=== PATIENT | male | born 1955 | race Caucasian/White ===

== ENCOUNTER → 2018-01-31 | Outpatient (CLI) | payer OTHER ==
[~2018-01-31] VITALS: Ht 172.7 cm; Wt 95.3 kg
[~2018-01-31] MED LIST: ASPIR 8181 MG PO; CELEBREX 200 M200 M1 PO; FOLIC ACID1 MG PO; HUMIRA20 MG/0.4 SQ; LIPITOR80 MG PO; LORTAB 7.5/5001 TA1 PO; METFORMIN HCL500 MG PO; METHOTREXATE 22.5 MG PO; NORVASC5 MG PO; PERCOCET 7.5-31 EACH PO; PRINZIDE 20-251 EACH PO; TEMAZEPAM30 MG PO; VIAGRA100 MG PO; VITAMIN D1000 UNI1 PO
--- NOTE | ~2018-01-31 | HPC ---
[facility] [address] [place] [address] PAIN MANAGEMENT CONSULTATION Name: ISABEL MAJOR [facility] [id number] Admission: 01/31/18 Attend Phys: Eliazar Florentino DO Discharge: Date of : 51 Report #: [id number] THIS REPORT FOR: //name// CC: Mihir Umana MD DATE OF SERVICE: 01/31/2018 REFERRING PHYSICIAN: Dr. William Umana. CHIEF COMPLAINT: Low back pain, left lower extremity pain with paresthesias. HISTORY OF PRESENT ILLNESS: As you know, the patient is a very pleasant 63-year-old male who began experiencing instantaneous back pain, left lower extremity pain with paresthesias that occurred 01/03/2018. The patient states that he was going about his daily work out utilizing a stationary row machine when he felt back pain began and then radiation down the left leg that he described as a hot poker-like sensation. The patient believes he may have "pulled something." He did not improve with conservative treatment at home including poon-[id number] medications, rest and relaxation. He sought evaluation through his primary care physician, Dr. William Umana, who ultimately sent the patient for imaging of the lumbar spine. Imaging showed a large circumferential disk protrusion at the L3-L4 level with significant central canal stenosis and marked displacement of the thecal sac at the L3-L4 level and displacement of the L4 nerve root due to this displaced disk. The patient was initially started on some Lyrica in hopes of improving pain. He is now at 150 mg twice a day with improvement in symptoms, but continued pain radiating down the left leg. He was subsequently referred to our clinic to trial epidural injections under fluoroscopic guidance. He does have an appointment with Neurosurgery, 02/19/2018 to discuss the possibility of surgical options. He has been referred to our service to discuss treatment options. The patient today reports pain is continuous and constant. Describes the pain as burning, aching, relentless, stabbing, numbness and tingling. Places the current pain score 3-4/10, daily average of 6/10, worst pain has been a 9/10. The patient says standing, walking, sitting, lying down, tends to exacerbate symptoms. Not much in the way of improvement has been noted except for the Lyrica 150 mg twice a day dose. He has continued his home physical therapy program for which he was given handouts to be performing at home. He has an inversion table he has been using consistently, but has not noted significant benefit. He has been referred to discuss treatment options and to potentially undergo epidural injection. PAST MEDICAL HISTORY: 1. Diabetes mellitus type 2. [address] [address] PAIN MANAGEMENT CONSULTATION Name: ISABEL MAJOR Room #: REG CROY Medrano#: [id number] Admission: 01/31/18 Attend Phys: Eliazar Florentino DO Discharge: Date of : 51 Report #: [id number] 2. Hypertension. 3. Rheumatoid arthritis. 4. Erectile dysfunction. 5. Dyslipidemia. PAST SURGICAL HISTORY: 1. Bilateral rotator cuff repair in 2006 and 2007. 2. Cervical decompression, 08/2016. SOCIAL HISTORY: The patient denies tobacco, IV or illicit drug use. Admits to approximately 2-3 alcohol beverages per week. 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 He has been retired for about 15 years, not receiving workmen's compensation or is he trying to obtain disability benefits. He is not in litigation in regards to pain. He is unaccompanied today. REVIEW OF SYSTEMS: Positive for fatigue and weakness, wearing corrective eyewear, hearing loss with tinnitus, changes in bowel movement secondary to opioid management, frequent urination, nocturia, sexual difficulty requiring medication management, numbness and tingling sensations involving the low back and left lower extremity, diabetes mellitus type 2, excessive thirst and urination. All other review of systems negative per 12-point review of systems other than those listed in history of present illness. Pain impact score 52/70 indicating severe interference of daily activities secondary to pain. ALLERGIES: No known drug allergies. CURRENT MEDICATIONS: Viagra 100 mg p.r.n., temazepam 30 mg p.o. at bedtime, celecoxib 200 mg once a day, aspirin 81 mg per day, amlodipine 5 mg twice a day, hydrocodone/acetaminophen 7.5/325 one tab p.o. q. 8 hours p.r.n. for pain, cholecalciferol 1000 units per day, folic acid 1 mg once a day, lisinopril/hydrochlorothiazide 20/25 once a day, metformin 500 mg twice a day, atorvastatin 80 mg once a day, methotrexate 2.5 mg 5 tabs per day, Humira 20 mg/0.4 mL kit subQ as directed. IMAGING: MRI of lumbar spine obtained 01/23/2018 shows a large circumferential disk bulge and facet hypertrophy at the L3-L4 level. Distortion of the thecal sac is noted due to asymmetry of the bulging annulus. There appears to be an extruded fragment, measures approximately 1.7 cm craniocaudal, 1.6 cm transversely, and 7 mm AP with marked displacement of the thecal sac at the L4 vertebral body, thecal sac measuring 0.6 cm. There are changes at the L4-L5 level with large bulging disk, marked facet hypertrophy and arthropathy, neural foraminal stenosis, effacement of the lateral right and left thecal sac with measurement of the sac measuring 0.9 cm. [facility] [address] [place] [address] PAIN MANAGEMENT CONSULTATION Name: PEDRITOISABEL LEZAMA Room #: REG [facility].#: [id number] Admission: 01/31/18 Attend Phys: Eliazar Florentino DO Discharge: Date of : 51 Report #: [id number] PHYSICAL EXAMINATION: VITAL SIGNS: Blood pressure 135/70, pulse is 65, respiratory rate 16 and unlabored. The patient is 98% on room air. Height 5 feet 8 inches tall, weight 210 pounds, BMI calculated 31.9. GENERAL: Well-developed, well-nourished, well-hydrated, 63-year-old male, appearing stated age, placing current pain score 3-4/10. HEENT: Normocephalic, atraumatic. Pupils equal, round, reactive to light. Extraocular muscles are intact. Sclerae nonicteric without injection. NEUROLOGIC: Cranial nerves 2-12 grossly intact. Speech is fluent. The patient deemed an excellent historian. LUNGS: Clear. No wheeze, rhonchi or rales. CARDIOVASCULAR: Regular. No appreciable gallop. No rub. ABDOMEN: Soft, nontender. EXTREMITIES: Show no clubbing, no cyanosis, no edema. MUSCULOSKELETAL: The patient has some palpatory tenderness over the paraspinal musculature of lower lumbar spine. No spinous process tenderness. Muscle bulk and tone equal and symmetrical in lower extremity. He remains intact to light touch from L1 through S2 dermatomes. Seated straight leg raising positive on the left. Supine straight leg raising positive on the left. VICKEY test negative. Modified Gaenslen's positive for axial low back pain. Gait mildly antalgic favoring left lower extremity over right. Stance is forward flexed lumbar spine, loss of lordotic curvature. Ankle clonus negative. Babinski is negative. ASSESSMENT: 1. Symptomatic lumbar radiculopathy. 2. Spinal stenosis of lumbar spine. 3. Displacement of lumbar intervertebral disk with radiculopathy. 4. Lumbosacral spondylosis with radiculopathy. 5. Neural foraminal stenosis of lumbar spine. 6. Facet arthropathy of the lumbar spine. 7. Lumbar degeneration. 8. Chronic intractable pain. PLAN: 1. The patient has been referred to our service by his primary care physician, Dr. William Umana for evaluation for lumbar radiculopathy secondary to the findings at the L3-L4 level. The patient has significant change at the L3-L4 level for which he is also seeking surgical consultation. We discussed with the patient the treatment options available for the findings of the MRI and his current symptom distribution. We discussed the following with the patient today and treatment option. We discussed physical therapy, stretching exercise, core strengthening for which the patient is currently doing home physical therapy program, but we did discuss the possibility of beginning a more formalized program, [place] [address] PAIN MANAGEMENT CONSULTATION Name: ISABEL MAJOR Room #: REG CORY Medrano#: [id number] Admission: 01/31/18 Attend Phys: Eliazar Florentino DO Discharge: Date of : 53 Report #: [id number] direction of a physician in regards to this activity. He is also continuing to use his inversion table per his physician's direction. We discussed medication management escalating the Lyrica dose as he is noticing benefit to 150 mg twice a day and there is a possibility of increasing. May see improvement in symptoms. We discussed the requested lumbar epidural injection, spinal cord stimulator therapy and surgical options. After reviewing risks and benefits of all proposed treatment options, the patient chose to begin with an epidural injection. The patient was advised third constitution party payer restrictions require that authorization be obtained before he could undergo lumbar epidural injection. Authorization could take anywhere from 4-7 working days. We will begin this process immediately and contact the patient once the authorization has been received. 2. The patient and I did discuss the possibility of increasing his Lyrica. Currently, he is taking 150 mg twice a day. Would recommend increasing it to 200 mg twice a day. If there is no improvement in symptoms and no side effects, escalate to 250 mg twice a day. We have given the patient samples of 50 mg tablets to be able to titrate as directed. He will continue his medication until our next visit. If at that time, we need to make further adjustments or a full prescription available to the patient, we will do so. 3. The patient does have an appointment with Neurosurgery, 02/19/[address] Acuna. We recommend that the patient keep this appointment with Dr. Acuna to discuss surgical options. 4. We will see the patient back in followup visit once we have achieved authorization for the patient to undergo epidural injection. We will keep him apprised of our process and contact him once the authorization has been obtained to schedule him back to do the epidural injection. 5. We wish to thank Dr. Umana for the referral of patient to our clinic. We will keep you apprised of his response to treatment as we address his lumbar radiculopathy. Again, we wish to thank you for the opportunity to see the patient in consultation. By: [id number] Eliazar Florentino DO /nitin
[2018-01-31 08:39] VITALS: BP 135/70
== END ==
LOC: PAIN 07:00
DX: M48.061 Spinal stenosis, lumbar region without neurogenic claudication (principal); M47.27 Other spondylosis with radiculopathy, lumbosacral region; G89.4 Chronic pain syndrome; M12.88 Other specific arthropathies, not elsewhere classified, other specified site

== ENCOUNTER → 2018-02-13 | Outpatient (CLI) | payer OTHER ==
[~2018-02-13] VITALS: Ht 172.7 cm; Wt 97.5 kg
--- NOTE | ~2018-02-13 | HPC ---
[facility] [address] [place] [address] PAIN MANAGEMENT CONSULTATION Name: ISABEL MAJOR [facility] [id number] Admission: 02/13/18 Attend Phys: Eliazar Florentino DO Discharge: Date of : 51 Report #: [id number] THIS REPORT FOR: //name// CC: Mihir Umana MD DATE OF SERVICE: 02/13/2018 REFERRING PHYSICIAN: William Umana MD CHIEF COMPLAINT: Low back pain, left lower extremity pain and paresthesias. HISTORY OF PRESENT ILLNESS: As you know, the patient is a very pleasant 63-year-old male who was seen in consultation per the request of Dr. William Umana on 01/31/2018, where he was diagnosed with symptomatic lumbar radiculopathy secondary to severe spinal stenosis of lumbar spine, which is due to combination of a displacement of lumbar intervertebral disk and facet arthropathy. The patient was provided options for treatment, chose to undergo epidural injection under fluoroscopic guidance. We received authorization for the patient to undergo the procedure today. He returns today in followup visit indicating a pain level of 4/10 involving low back and left lower extremity. He describes the pain as burning, aching, numbness, tingling, tenderness and sore, exacerbated with standing and walking, improves with medications and repositioning. The patient was started on Lyrica at the last visit and rapidly escalated to 200 mg dose. This did improve his symptoms. He continues to take 150 mg for baseline neuropathic pain control and he is noticing good improvement. He is going to continue on this medication. He has appointment with Dr. Acuna on 02/19/2018 to discuss possible surgical options. He returns today to undergo epidural injection. ALLERGIES: No known drug allergies. CURRENT MEDICATIONS: Humira, methotrexate, atorvastatin, metformin, lisinopril, hydrochlorothiazide, folic acid, cholecalciferol, hydrocodone, amlodipine, aspirin, celecoxib, temazepam, and Viagra. SOCIAL HISTORY: The patient denies tobacco, IV or illicit drug use. Admits to approximately 3 alcoholic beverages per week. 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 He is unaccompanied today. IMAGING: No new imaging available. PHYSICAL EXAMINATION: VITAL SIGNS: Blood pressure 141/82, pulse 80, respiratory rate 14 and [facility] [address] [place] [address] PAIN MANAGEMENT CONSULTATION Name: PEDRITOISABEL LEZAMA Room #: REG [facility].#: [id number] Admission: 02/13/18 Attend Phys: Eliazar Florentino DO Discharge: Date of : 51 Report #: [id number] unlabored. The patient is 98% on room air. Height 5 feet 8 inches tall, weight 215 pounds, BMI calculated 32.7. GENERAL: Well-developed, well-nourished, well-hydrated exogenously obese 63-year-old male appearing stated age, placing current pain score at 4/10. HEENT: Normocephalic, atraumatic. Pupils equal, round, reactive to light. Extraocular muscles are intact. Sclerae nonicteric without injection. NEUROLOGIC: Cranial nerves 2-12 grossly intact. Speech fluent. The patient deemed a good historian. EXTREMITIES: Show no clubbing, no cyanosis, no edema. MUSCULOSKELETAL: Lower extremity strength is equal and symmetrical 5/5. Muscle bulk and tone is noted to be reduced on the left when compared to the right. There are some apparent muscular changes noted in the quadriceps and gastrocnemius. Seated straight leg raising positive on the left. Supine straight leg raising positive on the left. Ewelina's test negative. Modified Gaenslen's positive for axial low back pain. ASSESSMENT: 1. Symptomatic lumbar radiculopathy. 2. Spinal stenosis of lumbar spine. 3. Displacement of lumbar intervertebral disk with radiculopathy. 4. Lumbosacral spondylosis with radiculopathy. 5. Neural foraminal stenosis of lumbar spine. 6. Facet arthropathy of the lumbar spine. 7. Lumbar degeneration. 8. Chronic intractable pain. PLAN: 1. The patient returns today in followup visit having received authorization to undergo first in the series of lumbar epidural injections. We have advised the patient of the risks and the benefits of this procedure. These risks include but are not necessarily limited to bleeding, bruising, infection, worsening pain, no relief of pain, and also risk of temporary or permanent muscle weakness, temporary or permanent nerve damage, possible paralysis and . The patient states he understood and wished to proceed. 2. The patient will continue on his Lyrica 150 mg dose at night. He will continue his medication for analgesic benefit. He is denying any side effects with the use. 3. The patient will follow up with his neurosurgeon on 02/19/2018 to discuss surgical options. We await the consultation and the recommendations. 4. We will see the patient back in followup visit in 30 days for the next in the series of epidural injections assuming it is necessary. PROCEDURE NOTE DESCRIPTION OF PROCEDURE: L5-S1 left paramedian epidural steroid injection under fluoroscopic guidance. [address] [address] PAIN MANAGEMENT CONSULTATION Name: ISABEL MAJOR Room #: REG [facility] Medrano#: [id number] Admission: 02/13/18 Attend Phys: Eliazar Florentino DO Discharge: Date of : 51 Report #: [id number] This is the first procedure of the first series that the patient is undergoing. After obtaining written consent, the patient was taken back to the fluoroscopy suite, placed in a prone position with pillow under the abdomen to decrease lumbar lordosis. The skin overlying the lumbosacral area was then prepped and draped in aseptic fashion. The L5-S1 vertebral interspace was then identified by AP fluoroscopy. The skin and subcutaneous tissue overlying the target site of injection was anesthetized with 3 mL 1% lidocaine. A(n) 20-gauge 3-1/2 inch Tuohy needle was then advanced under fluoroscopic guidance towards the epidural space using a left paramedian approach. The epidural space was identified using loss of resistance to air technique. After negative aspiration for heme or cerebrospinal fluid, a total of 1 mL of Omnipaque was injected. A lumbar epidurogram was confirmed using both AP and lateral fluoroscopy. After negative aspiration for heme or cerebrospinal fluid, 5 mL of a solution containing 2 mL 40 mg per mL, 80 mg total triamcinolone, 3 mL of lidocaine 1% was injected in increments. Contrast spread was noted from posterior epidural space. The needle was then retracted approximately half way and needle tract flushed with 1 mL of 1% lidocaine. Needle was then removed. There were no apparent sensory or motor deficits in the lower extremity following the procedure. A sterile bandage was placed over the injection site. The heart rate, pulse, oximetry and blood pressure were continuously monitored after the procedure. There were no apparent complications. The patient tolerated the procedure well and was carefully escorted to the recovery room in stable condition. There were no apparent complications. After meeting discharge criteria, the patient was then discharged home. By: [id number] Eliazar Florentino DO /nt
[2018-02-13 08:08] VITALS: BP 141/82
== END | disposition home or self-care (01) ==
LOC: PAIN 06:56
DX: M51.16 Intervertebral disc disorders with radiculopathy, lumbar region (principal); M48.061 Spinal stenosis, lumbar region without neurogenic claudication; M47.27 Other spondylosis with radiculopathy, lumbosacral region; M99.73 Connective tissue and disc stenosis of intervertebral foramina of lumbar region; M12.88 Other specific arthropathies, not elsewhere classified, other specified site; G89.29 Other chronic pain; E66.9 Obesity, unspecified; Z79.899 Other long term (current) drug therapy; Z79.84 Long term (current) use of oral hypoglycemic drugs; Z79.82 Long term (current) use of aspirin; Z68.32 Body mass index [BMI] 32.0-32.9, adult; Z87.891 Personal history of nicotine dependence

== ENCOUNTER → 2019-08-20 | Outpatient (CLI) | payer OTHER ==
[~2019-08-20] VITALS: Ht 175.3 cm; Wt 101.6 kg
[~2019-08-20] MED LIST changes: +ANDROGEL2.5 G1 TOP
[2019-08-20 14:38] VITALS: BP 126/80
--- NOTE | 2019-08-20 14:55 | NUR ---
Pain Clinic Assessment: 1. History of Osteoarthritis: N History of Rheumatoid Arthritis: Y 2. Height: 5 ft. 9 in. 175.3 cm. Weight: 224.0 lb. oz. 101.606 kg. Patient's BMI: 33.1 3. Vital Signs: BP: 126/80 Pulse: 96 Resp: 16 Temp: 02 Sat: 100 ECG Mon: 4. Pain Intensity: 2-4 5. Fall Risk: Dizziness: N Needs help standing or walking: N Fallen in the last 3 months: N Fall risk comments: 6. Patient on Blood Thinner: None 7. History of Hypertension: Y 8. Opioid Therapy greater than 6 weeks: Y Opiate Contract Signed: 9. Risk Assessment Tool Provided: 0-LOW RISK 10. Functional Assessment Tool: 11. Recreational Drug Use: Never Drug Type: Tobacco Use: Former Smoker Tobacco Type: Amount or Packs/day: How Many Years: Alcohol Use: Yes Frequency: Quant:
--- NOTE | 2019-08-21 12:59 | HPC ---
[facility] [place] [address] PAIN MANAGEMENT CONSULTATION Name: ISABEL MAJOR Room #: REG Gilda ConnorsJeannie.#: [id number] Admission: 08/20/19 Attend Phys: Eliazar Florentino DO Discharge: Date of : 51 Report #: [id number] THIS REPORT FOR: cc: Jolene Gilbert Carol ARNP Johnson, James E. DO ~ DATE OF SERVICE: 08/20/2019 REFERRING PHYSICIAN: Dr. William Cha. CHIEF COMPLAINT: Low back pain, left lower extremity pain with paresthesias. HISTORY OF PRESENT ILLNESS: As you know, the patient is a very pleasant 64-year-old male who returns today in followup visit with recurrent low back pain, left lower extremity pain with paresthesias and intermittent right lower extremity pain. He is now placing pain score anywhere from 2-4/10. He returns today in followup visit stating his pain is beginning to burn, ache and feels tender in sensation. States pain is exacerbated with standing and walking, improves with medications, repositioning and previous epidural injection. The patient reports the epidural injection provided at our last visit of 02/13/2018 gave 100% improvement in overall pain lasting until just recently with a slow and progressive return of symptoms. The patient denies injury or trauma that may have led to symptom reoccurrence. He is denying any medication management or medical conditions that would preclude him from undergoing an epidural injection today. He returns today requesting a lumbar epidural injection to build on success of previous intervention. ALLERGIES: No known drug allergies. CURRENT MEDICATIONS: Testosterone, temazepam, celecoxib, aspirin, amlodipine, hydrocodone, cholecalciferol, folic acid, lisinopril, hydrochlorothiazide, metformin, atorvastatin, methotrexate and Humira. SOCIAL HISTORY: The patient reports he is a nonsmoker. Denies IV or illicit drug use. Admits to occasional alcohol beverage. 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 He is unaccompanied at today's visit. IMAGING: No new imaging available. PHYSICAL EXAMINATION: VITAL SIGNS: Blood pressure 126/80, pulse is 96, respiratory rate 16 and unlabored. The patient is 100% on room air. Height 5 feet 9 inches tall, weight 224 pounds, BMI calculated 33.1. GENERAL: Well-developed, well-nourished, well-hydrated [place] [address] PAIN MANAGEMENT CONSULTATION Name: ISABEL MAJOR Room #: REG CLGilda AnnQuin#: [id number] Admission: 08/20/19 Attend Phys: Eliazar Florentino DO Discharge: Date of : 53 Report #: [id number] 64-year-old male appearing stated age, pain is rated 2-4/10. HEENT: Normocephalic, atraumatic. Pupils equal, round, reactive to light. NEUROLOGIC: Speech fluent. The patient deemed a good historian. LUNGS: Appear clear. No wheeze, rhonchi or rales. CARDIOVASCULAR: Regular. No appreciable gallop, no rub. ABDOMEN: Soft, obese, normoactive bowel sounds. EXTREMITIES: Show no clubbing, no cyanosis, no edema. MUSCULOSKELETAL: Lower extremity strength equal and symmetrical 5/5. Slight giveaway strength noted on the left when compared to the right that is noted with hip flexion, knee extension. Seated straight leg raising negative. Supine straight leg raising positive on the left. Ewelina test negative. Modified Gaenslen's positive for axial low back pain. Ankle clonus negative. Babinski is negative. ASSESSMENT: 1. Symptomatic lumbar radiculopathy. 2. Spinal stenosis of the lumbar spine. 3. Displacement of lumbar intervertebral disk with radiculopathy. 4. Lumbosacral spondylosis with radiculopathy. 5. Neuroforaminal stenosis of lumbar spine. 6. Facet arthropathy of the lumbar spine. 7. Degeneration of lumbar spine. 8. Chronic intractable pain. PLAN: 1. The patient returns today in followup visit having noted 100% improvement in overall pain from our epidural injection provided in ____. Unfortunately, his symptoms have begun to return. He denies injury or trauma that may have led to symptom reoccurrence. He states he has been in his normal state of health. He has been going about his normal activities of daily living without significant pain interference until just recently where he has had a slow and progressive return of symptoms. He has been advised to return today to undergo next in the series of epidural injections. We discussed with the patient the risks, he assumes by undergoing an epidural injection. These risks include but are not necessarily limited to bleeding, bruising, infection, worsening pain, no relief of pain, also risk of temporary or permanent muscle weakness, temporary or permanent nerve damage, possible paralysis and . The patient states understood and wished to proceed. We also discussed with the patient his risks of the COVID-19 virus with steroid exposure. The patient has known immune compromise with his current medications, Humira, this in conjunction with a steroid exposure places him at high risk category for contraction of the COVID-19 along with concerns that his age may play in the part of the yomi the disease as well as exacerbated symptoms. It should also be noted that steroid exposures can exacerbate symptoms of [facility] [address] [place] [address] PAIN MANAGEMENT CONSULTATION Name: ISABEL MAJOR [facility] #[facility] [id number] Admission: 08/20/19 Attend Phys: Eliazar Florentino DO Discharge: Date of : 53 Report #: [id number] COVID-19. The patient states he understands his risk, but cannot continue to go about his activities of daily living without treatment for his lumbar radicular symptoms. He has assumed the risk of the COVID-19 virus and steroid exposures as well as typical risks to epidural injections and wishes to proceed. 2. No medication changes made at today's visit. The patient will continue current medical therapy as previously prescribed. 3. We will see the patient back in followup visit on an as needed basis for possible next in the series of epidural injections. We are hopeful the patient will see good and prolonged benefit with today's epidural injection as he has seen in the past with the previous injection. PROCEDURE NOTE DESCRIPTION OF PROCEDURE: L5-S1 left paramedian epidural steroid injection under fluoroscopic guidance. After obtaining written consent, the patient was taken back to fluoroscopy suite, placed in prone position with pillow under abdomen to decrease lumbar lordosis. Skin overlying lumbosacral area then prepped and draped in aseptic fashion. L5-S1 vertebral interspace identified by AP fluoroscopy. Skin and subcutaneous tissue overlying target site injection anesthetized with 3 mL of 1% lidocaine. A 20-gauge 3-1/2 inch Tuohy needle advanced under fluoroscopic guidance towards the epidural space using a left paramedian approach. Epidural space identified using loss of resistance to air technique. After negative aspiration for heme or cerebrospinal fluid, 1 mL of Omnipaque injected. Lumbar epidurogram confirmed using both AP and lateral fluoroscopy. After negative aspiration for heme or cerebrospinal fluid, 5 mL of a solution containing 2 mL 40 mg per mL, 80 mg total triamcinolone along with 3 mL of lidocaine 1% injected slowly. Needle then retracted long term, flushed with 1 mL of 1% lidocaine and then removed. Sterile bandage placed over injection site. There were no new motor deficits present in the lower extremities following procedure. The patient tolerated procedure well, carefully escorted to recovery room in stable condition. No apparent complications. After meeting discharge criteria, the patient discharged home. <ELECTRONICALLY SIGNED> By: Eliazar Florentino DO 08/21/19 1259 [id number] Eliazar Florentino DO /nt
== END | disposition home or self-care (01) ==
LOC: PAIN 06:58
DX: M51.16 Intervertebral disc disorders with radiculopathy, lumbar region (principal); M47.27 Other spondylosis with radiculopathy, lumbosacral region; M47.26 Other spondylosis with radiculopathy, lumbar region; M48.061 Spinal stenosis, lumbar region without neurogenic claudication; G89.29 Other chronic pain; Z98.890 Other specified postprocedural states; Z79.899 Other long term (current) drug therapy; Z79.891 Long term (current) use of opiate analgesic

== ENCOUNTER → 2020-02-11 | Outpatient (CLI) | payer OTHER ==
[~2020-02-11] VITALS: Ht 175.3 cm; Wt 102.2 kg
[~2020-02-11] MED LIST changes: +DULOXETINE HCL30 MG PO
[2020-02-11 08:21] VITALS: BP 140/84
--- NOTE | 2020-02-11 08:39 | NUR ---
Pain Clinic Assessment: 1. History of Osteoarthritis: Not Applicable History of Rheumatoid Arthritis: Y 2. Height: 5 ft. 9 in. 175.3 cm. Weight: 225.4 lb. oz. 102.241 kg. Patient's BMI: 33.3 3. Vital Signs: BP: 140/84 Pulse: 83 Resp: 16 Temp: 02 Sat: 98 ECG Mon: 4. Pain Intensity: 2-4 5. Fall Risk: Dizziness: N Needs help standing or walking: N Fallen in the last 3 months: N Fall risk comments: 6. Patient on Blood Thinner: None 7. History of Hypertension: Y 8. Opioid Therapy greater than 6 weeks: Y Opiate Contract Signed: 9. Risk Assessment Tool Provided: 0-LOW RISK 10. Functional Assessment Tool: 11. Recreational Drug Use: Never Drug Type: Tobacco Use: Former Smoker Tobacco Type: Amount or Packs/day: How Many Years: Alcohol Use: Yes Frequency: Weekly Quant: 1-2
--- NOTE | 2020-02-12 11:27 | HPC ---
[facility] [address] [place] [address] PAIN MANAGEMENT CONSULTATION Name: ISABEL MAJOR Room #: REG Gilda Marcela#: [id number] Admission: 02/11/20 Attend Phys: Eliazar Florentino DO Discharge: Date of : 51 Report #: [id number] CC: Jolene Umana MD DATE OF SERVICE: 02/11/2020 REFERRING PHYSICIAN: William Umana MD CHIEF COMPLAINT: Neck pain, bilateral upper extremity pain with paresthesias. HISTORY OF PRESENT ILLNESS: As you know, the patient is a 65-year-old male who has a longstanding history of cervical radiculopathy involving the C5 dermatome specifically on the right and bilateral C6 dermatomes with left worse than right. He continues to experience pain despite disk replacement surgery at C4-C5 and C5-C6. He has recently undergone EMG of the upper extremities, which shows consistent right C5 radiculopathy that is inactive with no active denervation and bilateral C6 radiculopathies, left greater than right. Due to lack of improvement and continued neuropathic symptoms, the patient was referred back to our clinic. The patient has trialed Lyrica in the past, which made him disoriented and confused. This medication was subsequently discontinued as he was experiencing emotional lability. He was started on Cymbalta at 60 mg dose, which again caused side effects he could not tolerate. They reduced his dose to 30 mg, but he is receiving no benefit from his neuropathic symptoms with this dosing. He has been referred back to our clinic to discuss the possibility of undergoing interventional treatments to address ongoing pain, also to discuss medication management issues. ALLERGIES: No known drug allergies. CURRENT MEDICATIONS: Duloxetine 30 mg p.o. q.a.m., testosterone applied topically once a day, temazepam 30 mg once a day, celecoxib 200 mg once a day, aspirin 81 mg per day, Norvasc 5 mg b.i.d., hydrocodone/acetaminophen 7.5/500 one tab p.o. q. 8 hours p.r.n. for pain, folic acid 1 mg once a day, lisinopril/hydrochlorothiazide 20/25 one tab per day, metformin 500 mg twice a day, atorvastatin 80 mg once a day, methotrexate 2.5 mg, total of 10 mg per day week, Humira 20 mg subcutaneous as directed. SOCIAL HISTORY: The patient denies tobacco, alcohol, IV or illicit drug use. He is unaccompanied at today's visit. IMAGING: There is no new imaging available. EMG of the upper extremities show consistent longstanding C5 and C6 radiculopathies, C5 on the right and bilateral C6 noted on EMG. This is longstanding and similar to findings in 2017. PQRS: The patient has arthritic changes of the cervical spine and lumbar spine as well as weightbearing joints. 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 He is placing pain intensity today 2-4/10. He is not a fall risk, has not had a fall in last 3 months. He is not on blood thinners, but is treated for hypertension. He is on chronic opioids, but has a low opiate addiction potential based on our assessment tool. Pain impact 29/70, moderate interference of daily activities secondary to pain. PHYSICAL EXAMINATION: VITAL SIGNS: Blood pressure 140/84, pulse 83, respiratory rate 16 and unlabored. The patient is 98% on room air. Height 5 feet 9 inches tall, weight 225.4 pounds, BMI calculated 33.3. GENERAL: Well-developed, well-nourished, well-hydrated 65-year-old male appearing stated age. He is in no acute distress, awake, alert and oriented x 3. Current pain score 2-4/10. HEENT: Normocephalic, atraumatic. Pupils equal, round and reactive. NEUROLOGIC: Speech is fluent. The patient deemed an excellent historian. EXTREMITIES: Show no clubbing, no cyanosis, no edema. MUSCULOSKELETAL: The patient has tactile changes in the distal portion of C6 on the left. He has mild reduction in transition advisor strength on the left when compared to the right. Muscle bulk and tone appears symmetrical in the upper extremities. Spurling's test is equivocal. Well-healed surgical scars from prior cervical surgery. There is reduction in rotational capabilities and extension of the cervical spine, lateral flexion causes no change in overall pain. ASSESSMENT: 1. Chronic cervical radiculopathy. 2. Cervical spondylosis with radiculopathy. 3. Chronic cervical neuropathy. PLAN: 1. The patient has returned today in followup visit per the request of the referring physician, Dr. William Umana and his neurosurgeon, Dr. Sanjiv Acuna to discuss cervical epidural injection to address chronic cervical radiculopathy. The patient presents today with EMG of the upper extremities performed by Dr. Danny Ruggiero, which shows findings consistent from [id number]. The findings were indicating a right C5 dermatomal distribution and bilateral C6 dermatomal distribution that is very similar to the findings of 2017. This appears to be the source of the patient's symptoms. He is experiencing pain radiating in the C6 dermatome today with affects all the way into the first digit and thumb, the left greater than right, but presenting equally. He and I have had a long discussion about of the EMG today and the treatment options and following was discussed with the patient. We discussed physical therapy, stretching exercises and traction techniques as a treatment course. We discussed medication management with neuropathic pain medications such as amitriptyline, nortriptyline, escalating his Cymbalta or possibly adding gabapentin. We discussed cervical epidural injection under fluoroscopic guidance as a way to treat symptoms that are present at this time as well as surgical options with the patient. After reviewing risks and benefits of all proposed treatment options, the patient chose to begin with cervical epidural injection. 2. The patient was advised of the risks and benefits of the cervical epidural injection. These risks include but are not necessarily limited to bleeding, bruising, infection, worsening pain, no relief of pain and also risk of temporary or permanent muscle weakness, temporary or permanent nerve damage, possible paralysis and . The patient states understood and wished to proceed. 3. The patient and I did discuss at length the use of medications to control neuropathic symptoms. The patient failed Lyrica in the past as this caused him emotional lability and dysphoric effects he could not tolerate and discontinued the medication. These symptoms subsequently decreased and ultimately abated. The patient was started on duloxetine at 60 mg dose by his nurse practitioner, but he also began to experience side effects of dysphoria and had to reduce his dose down to 30 mg. There was no change in his overall pain even at the 60 mg dose. We would have to escalate duloxetine 90-120 to gain analgesic benefit as norepinephrine reuptake inhibition is not recognized and duloxetine until higher doses. We discussed the possibility of utilizing gabapentin that we may find similar side effects as he has seen with Lyrica. This leaves us with nortriptyline and amitriptyline though the patient is resistant to try this medication given its potential side effects. This severely limits what medications could be used for neuropathy. We also discussed with the patient, he could discuss with Dr. Acuna the possibility of implanting a spinal cord stimulator paddle lead, which may give the patient analgesic benefit and this may improve his symptoms for long-term. He will not need to discuss this with his neurosurgeon as given his prior surgeries in the cervical spine, percutaneous leads would likely not be possible to implant and a paddle lead would be more appropriate for this patient as he is an avid hiker and remains extremely active. This could be an option for treatment. 4. We plan to see the patient back in followup visit in 2 weeks. At that time, review the efficacy of today's cervical epidural injection. If we are not seeing improvement in symptoms, we would recommend further imaging with MRI and then consultations with Neurosurgery based on those findings for either the further surgical decompression or possibly even a paddle lead for cervical radiculopathy. We will see him back in 2 weeks to discuss this further. We also discussed medication management at that visit. 5. We wish to thank Dr. Umana and Dr. Sanjiv Acuna for the opportunity to see the patient back in consultation to address cervical radiculopathy. PROCEDURE NOTE DESCRIPTION OF PROCEDURE: C7-T1 cervical epidural steroid injection under fluoroscopic guidance. This is the first procedure of the first series that the patient is undergoing. After obtaining written consent, the patient was taken back to the fluoroscopy suite, placed in a prone position with separate pillows under chest and forehead to decrease cervical lordosis. The skin overlying the lumbosacral area was then prepped and draped in aseptic fashion. The C7-T1 vertebral interspace was then identified by AP fluoroscopy. The skin and subcutaneous tissue overlying the target site of injection was anesthetized with 3 mL 1% lidocaine. A 20-gauge 3.5-inch Tuohy needle was then advanced under fluoroscopic guidance towards the epidural space using a midline approach. The epidural space was identified using loss of resistance to air technique. After negative aspiration for heme or cerebrospinal fluid, a total of 1 mL of Omnipaque was injected. A lumbar epidurogram was confirmed using both AP and lateral fluoroscopy. After negative aspiration for heme or cerebrospinal fluid, 5 mL of a solution containing 2 mL 40 mg per mL, 80 mg total triamcinolone along with 3 mL of lidocaine 1% was injected in increments. Contrast spread was noted posterior epidural space. The needle was then retracted approximately half way and needle tract flushed with 1 mL of 1% lidocaine. Needle was then removed. There were no apparent sensory or motor deficits in the lower extremity following the procedure. A sterile bandage was placed over the injection site. The heart rate, pulse, oximetry and blood pressure were continuously monitored after the procedure. There were no apparent complications. The patient tolerated the procedure well and was carefully escorted to the recovery room in stable condition. There were no apparent complications. After meeting discharge criteria, the patient was then discharged home. <ELECTRONICALLY SIGNED> By: Eliazar Florentino DO 02/12/20 1127 [id number] Eliazar Florentino DO /nt
== END | disposition home or self-care (01) ==
LOC: PAIN 06:39
PROVIDERS: ATTEND Anesthesiology Pain Medicine
DX: M47.22 Other spondylosis with radiculopathy, cervical region (principal); G89.29 Other chronic pain; I10 Essential (primary) hypertension; M19.90 Unspecified osteoarthritis, unspecified site; Z98.890 Other specified postprocedural states; Z79.899 Other long term (current) drug therapy; Z87.891 Personal history of nicotine dependence

== ENCOUNTER → 2020-02-25 | Outpatient (CLI) | payer OTHER ==
[~2020-02-25] VITALS: Ht 175.3 cm; Wt 101.3 kg
[~2020-02-25] MED LIST changes: +NEURONTIN300 MG PO
[2020-02-25 08:25] VITALS: BP 118/62
--- NOTE | 2020-02-26 12:43 | HPC ---
[facility] [address] [place] [address] PAIN MANAGEMENT CONSULTATION Name: ISABEL MAJOR Room #: [facility] Marcela#: [id number] Admission: 02/25/20 Attend Phys: Eliazar Florentino DO Discharge: Date of : 51 Report #: [id number] THIS REPORT FOR: cc: Jolene Gilbert Carol ARNP Johnson, James E. DO ~ DATE OF SERVICE: 02/25/2020 REFERRING PHYSICIAN: William Umana MD PRIMARY CARE PHYSICIAN: SANAZ Gibson CHIEF COMPLAINT: Neck pain, bilateral upper extremity pain, low back pain, bilateral lower extremity pain with paresthesias. HISTORY OF PRESENT ILLNESS: As you know, the patient is a 65-year-old male who returns today in followup visit having undergone a cervical epidural injection under fluoroscopic guidance due to bilateral C6 radiculopathies, left greater than right. He is reporting a 50% improvement in overall pain. It is noted that the patient has been rotated over to gabapentin and has just initiated the therapy 2 days ago. He is taking 300 mg p.o. at bedtime, but has noted no side effects, but also no improvement in overall symptoms. He returns today in followup visit to discuss potential changes in medication management or possibly undergoing next in the series of cervical epidural injections to address cervical radiculopathy and lumbar radiculopathy. The patient continues to receive treatment for his rheumatologic issues. He states he is having some increased cramping sensations in the upper extremities and lower extremities consistent with lumbar radiculopathy and cervical radiculopathy. He returns to discuss treatment options. ALLERGIES: No known drug allergies. CURRENT MEDICATIONS: Gabapentin 300 mg p.o. at bedtime, testosterone 2.5 grams topical daily, temazepam 30 mg p.o. at bedtime, celecoxib 200 mg twice a day, aspirin 81 mg per day, amlodipine 5 mg per day, hydrocodone/acetaminophen 7.5/500 one tab p.o. t.i.d. p.r.n., folic acid 1 mg per day, lisinopril/hydrochlorothiazide 20/25 mg once a day, metformin 500 mg twice a day, atorvastatin 80 mg once a day, methotrexate 10 mg once a week, Humira 20 mg subcutaneous as directed. SOCIAL HISTORY: The patient denies tobacco, alcohol, IV or illicit drug use. He is unaccompanied at today's visit. IMAGING: No new imaging available. [address] [address] PAIN MANAGEMENT CONSULTATION Name: ISABEL MAJOR [facility] [id number] Admission: 02/25/20 Attend Phys: Eliazar Florentino DO Discharge: Date of : 51 Report #: [id number] PQRS: The patient has arthritic changes of the cervical spine, lumbar spine as well as weightbearing hips, knees and joints. He is treated for rheumatoid arthritis. He is placing pain intensity today at level 2/10. He is not a fall risk, has not had a fall in last 3 months. He is not on blood thinners, but is treated for hypertension. He is on chronic opioids and has a low opiate addiction potential based on our assessment tool. Pain impact 29/70, [id number] interference of daily activities secondary to pain. PHYSICAL EXAMINATION: VITAL SIGNS: Blood pressure 118/62, pulse 80, respiratory rate 16 and unlabored, the patient is 99% on room air. Height 5 feet 9 inches tall, weight 223.4 pounds, BMI calculated to 33.0. GENERAL: Well-developed, well-nourished, well-hydrated 65-year-old male appearing stated age, pain is rated today around 2/10. HEENT: Normocephalic, atraumatic. Pupils equal, round and reactive. Speech fluent. EXTREMITIES: Show no clubbing, no cyanosis, no edema. MUSCULOSKELETAL: There is equal and symmetrical upper extremity muscle bulk and tone. Spurling's test remains equivocal. Well-healed surgical scars from previous cervical surgery. There is palpatory tenderness over the paraspinal musculature of lower lumbar spine. No spinous process tenderness. ASSESSMENT: 1. Chronic cervical radiculopathy. 2. Cervical spondylosis with radiculopathy. 3. Lumbar radiculopathy. 4. Chronic low back pain and neck pain. PLAN: 1. The patient returns today in followup visit where he has received greater than 50% improvement in overall symptoms with a cervical epidural injection. He states he has been able to return to the majority of his activities of daily living without significant pain interference. He does have some cramping sensations that occur at night consistent with radicular symptoms both coming from the cervical and lumbar region. We recommend adjustments in his gabapentin at this time. We also recommend delaying the next in the series of epidural injections until which time his pain returns to its baseline level. He is very pleased with response to the injection and is agreeable to make adjustments in medication today. 2. Recommend increasing the gabapentin rapidly for efficacy. He is taking 300 mg at night. We recommend increasing every 3 nights until reaching 900 mg p.o. at bedtime. If no side effects and no improvement in symptoms, continue the escalating doses all the way up to 900 mg 3 times a day. He was given a written titration of the medication to follow. I will also provide the patient with a prescription of gabapentin 300 mg dose, #270, to reach 900 mg 3 times a day. The patient was advised at anytime during the titration if he notes improvement [address] [address] PAIN MANAGEMENT CONSULTATION Name: ISABEL MAJOR [facility]#: [id number] Admission: 02/25/20 Attend Phys: Eliazar Florentino DO Discharge: Date of : 51 Report #: [id number] in symptoms, stabilize at that dose, no further escalation. If he is experiencing side effects, reduce to the dose prior to side effects and contact our clinic in regards to the next treatment adjustment. We are hopeful the patient will have good benefit with the gabapentin. 3. We will begin the process of approving the patient for the next in the series of cervical epidural injections. We plan to have that injection done in about 3 weeks. We will start the authorization process immediately for that 3-week injection. At that time, it will be 1-1/2 months from our first injection well within that timeframe allowed to undergo the next in the series and this will keep the patient at a better baseline pain level. If he does not need the injection, we can cancel that appointment. <ELECTRONICALLY SIGNED> By: Eliazar Florentino DO 02/26/20 1243 1000 05 Eliazar Florentino DO /nt
== END ==
LOC: PAIN 06:45
PROVIDERS: ATTEND Anesthesiology Pain Medicine
DX: M47.22 Other spondylosis with radiculopathy, cervical region (principal); M79.604 Pain in right leg; M79.605 Pain in left leg; R20.0 Anesthesia of skin; M79.642 Pain in left hand; M79.641 Pain in right hand; Z79.899 Other long term (current) drug therapy

== ENCOUNTER → 2020-07-01 | Outpatient (CLI) | payer OTHER ==
[~2020-07-01] VITALS: Ht 175.3 cm; Wt 102.4 kg
[2020-07-01 08:18] VITALS: BP 141/66
--- NOTE | 2020-07-01 08:28 | NUR ---
Pain Clinic Assessment: 1. History of Osteoarthritis: C-SPINE History of Rheumatoid Arthritis: Y 2. Height: 5 ft. 9 in. 175.3 cm. Weight: 225.8 lb. oz. 102.422 kg. Patient's BMI: 33.3 3. Vital Signs: BP: 141/66 Pulse: 73 Resp: 16 Temp: 02 Sat: 98 ECG Mon: 4. Pain Intensity: 3 IN RIGHT; 7 IN LEFT ARM 5. Fall Risk: Dizziness: N Needs help standing or walking: N Fallen in the last 3 months: N Fall risk comments: 6. Patient on Blood Thinner: None 7. History of Hypertension: Y 8. Opioid Therapy greater than 6 weeks: Y Opiate Contract Signed: 9. Risk Assessment Tool Provided: 0-LOW RISK 10. Functional Assessment Tool: 11. Recreational Drug Use: Never Drug Type: Tobacco Use: Former Smoker Tobacco Type: Amount or Packs/day: How Many Years: Alcohol Use: Yes Frequency: Quant:
--- NOTE | 2020-07-03 14:52 | HPC ---
[facility] [address] [place] [address] PAIN MANAGEMENT CONSULTATION Name: ISABEL MAJOR Room #: REG [facility] Marcela#: [id number] Admission: 07/01/20 Attend Phys: Eliazar Florentino DO Discharge: Date of : 51 Report #: [id number] THIS REPORT FOR: cc: Jolene Gilbert Carol ARNP Johnson, James E. DO ~ DATE OF SERVICE: 07/01/2020 CHIEF COMPLAINT: Neck pain, bilateral upper extremity pain and paresthesias. HISTORY OF PRESENT ILLNESS: As you know, the patient is a 65-year-old male returning in followup visit with continued cervical radicular symptoms. He reports mainly left upper extremity numbness and tingling at the fingertips. He has been evaluated by Neurosurgery, advised there are no surgical options at this point that this appears to be chronic residual peripheral neuropathy secondary to original injury of the cervical spine. EMG confirmed inactive, but chronic C5 and C6 radiculopathy actually involving bilateral upper extremities. He does appear to be suffering from mainly left hand numbness and tingling at this point. The patient received a phone call from his insurer indicating they were concerned about the level of gabapentin for which he is taking 900 mg 3 times a day, still below the highest dose of gabapentin 3600 mg a day, which equates to 1200 mg t.i.d. He is having no side effects to medication including sleepiness, disorientation, confusion, or mental slowing. He does feel it has been beneficial. He returns to discuss possible adjustments in medication management to help with ongoing pain. He is also requesting a new MRI, though he has had no changes in his distribution of symptoms or intensity. He returns today with pain level of 3/10 in the right upper extremity, 7/10 in the left upper extremity. ALLERGIES: No known drug allergies. CURRENT MEDICATIONS: Gabapentin 900 mg p.o. at bedtime, testosterone 2.5 grams daily, temazepam 30 mg p.o. at bedtime, celecoxib 200 mg twice a day, aspirin 81 mg per day, amlodipine 5 mg per day, hydrocodone/acetaminophen 7.5/500 one tab t.i.d., folic acid 1 mg per day, lisinopril/hydrochlorothiazide 20/25 mg once a day, metformin 500 mg b.i.d., atorvastatin 80 mg per day, methotrexate 10 mg once a week, Humira 20 mg subcutaneous as needed. SOCIAL HISTORY: The patient denies tobacco, alcohol, IV or illicit drug use. He is unaccompanied today. IMAGING: No new imaging available. PQRS: The patient has known arthritic changes of the cervical spine, lumbar spine, all weightbearing joints including hips, knees and ankles. He is treated for rheumatoid arthritis actively. He is not a fall risk. He has not had a [address] [address] PAIN MANAGEMENT CONSULTATION Name: ISABEL MAJOR [id number] Admission: 07/01/20 Attend Phys: Eliazar Florentino DO Discharge: Date of : 51 Report #: [id number] fall in last 3 months. He is placing pain at 3/10 on the right, 7/10 on the left. The patient is on hypertensive agents, but not on blood thinners. He is taking opioids with low opiate addiction potential. These are being provided through his primary care team. Pain impact is 29/70, moderate interference of daily activities secondary to pain. PHYSICAL EXAMINATION: VITAL SIGNS: Blood pressure 141/66, pulse 73, respiratory rate 16 and unlabored. The patient 98% on room air. Height 5 feet 9 inches tall, weight 225.8 pounds, BMI calculated 33.3. GENERAL: Well-developed, well-nourished, well-hydrated 65-year-old male appearing his stated age. He is in no acute distress; awake, alert and oriented x 3. MUSCULOSKELETAL: Pain is rated 3/10 in the right upper extremity, 7/10 in the left upper extremity, mainly at the tips of the fingers due to peripheral neuropathy secondary to C5-C6 radiculopathies. Upper extremity strength remains symmetrical 5/5. Tile Sorter strength appears symmetrical when comparing left upper extremity to right. Spurling's test is equivocal. Well-healed surgical scars in the cervical region. Palpatory tenderness is noted over the paraspinal musculature. The patient does have some allodynia of the fingertips on the left when compared to the right. ASSESSMENT: 1. Chronic cervical radiculopathy. 2. Cervical spondylosis with radiculopathy. 3. Peripheral neuropathy. 4. Chronic intractable pain. PLAN: 1. The patient returns today in followup visit, describing continued C5-C6 radiculopathy, mainly involving the left upper extremity, but to a lesser degree to the right. His symptoms tend to be located at the fingertips. He does have some allodynia of the left fingertips and to a lesser degree the right. We received the referral of this patient from his neurosurgery team as they had no further surgical options available to them to alleviate symptoms. It does appear the symptoms that the patient is experiencing are consistent with the EMG findings. There has been no change in distribution or intensity since our last visit. We have increased the patient's gabapentin in hopes of improving pain. He returns to discuss further treatment options. The patient did [facility] or not he should remain on "high dose gabapentin." He is only 900 mg 3 times a day, well below the 1200 mg t.i.d. dosing, which would be the upper dosing of gabapentin. The patient was denying any side effects of sleepiness, disorientation, confusion, mental slowing or any changes in mentation with the 900 mg t.i.d. dosing of gabapentin. 2. We discussed the possibility of adding duloxetine to the patient's medications. We had trialed duloxetine in the past. The patient felt that it [facility] [address] [place] [address] PAIN MANAGEMENT CONSULTATION Name: ISABEL MAJOR Room #: REG CORY Medrano#: [id number] Admission: 07/01/20 Attend Phys: Eliazar Florentino DO Discharge: Date of : 51 Report #: [id number] caused some somnolence, but wishes to retry the medication in hopes of adding adjunctive treatment to his gabapentin. We have agreed to restart the duloxetine in the following fashion: We will start the patient at 1 tab p.o. at bedtime for 7 nights. If no side effects of sleepiness, disorientation, confusion, mental slowing, then increase to 2 tabs p.o. at bedtime at night. Assuming no improvement in symptoms and no side effects, then increase to 1 tab in the morning and 2 tablets at night for 7 days. If again no improvement in symptoms, no side effects, then escalate to 60 mg b.i.d., the top dose of duloxetine. The patient was advised anytime during the titration if he notes improvement in symptoms, stabilize at that dose, no further escalation. He will keep us apprised of his response. He will continue the gabapentin as directed. 3. The patient was provided a prescription of duloxetine dose, #120 tablets to take as above. Prescription was provided with 2 refills. Prescription sent via e-scribe to local pharmacy. 4. The patient was provided a refill of his gabapentin at 900 mg t.i.d. Prescription was sent to the pharmacy without complications. 5. We plan to see the patient back in followup visit in 3 months if medications are working beneficially, otherwise he will return to discuss other options for treatment. <ELECTRONICALLY SIGNED> By: Eliazar Florentino DO 07/03/20 1452 [id number] Eliazar Florentino DO /nt
== END ==
LOC: PAIN 03-17 12:37
PROVIDERS: ATTEND Anesthesiology Pain Medicine
DX: M47.22 Other spondylosis with radiculopathy, cervical region (principal); G62.9 Polyneuropathy, unspecified; G89.4 Chronic pain syndrome; Z79.891 Long term (current) use of opiate analgesic; Z79.899 Other long term (current) drug therapy

== ENCOUNTER → 2020-08-19 | Outpatient (CLI) | payer OTHER ==
[~2020-08-19] VITALS: Ht 172.7 cm; Wt 99.1 kg
[~2020-08-19] MED LIST changes: +FLOMAX0.4 MG PO; +LYRICA 75 MG CA75 MG PO
[2020-08-19 08:37] VITALS: BP 145/80
--- NOTE | 2020-08-19 08:39 | NUR ---
Pain Clinic Assessment: 1. History of Osteoarthritis: C-SPINE History of Rheumatoid Arthritis: Y 2. Height: 5 ft. 8 in. 172.7 cm. Weight: 218.4 lb. oz. 99.066 kg. Patient's BMI: 33.2 3. Vital Signs: BP: 145/80 Pulse: 66 Resp: 16 Temp: 02 Sat: 100 ECG Mon: 4. Pain Intensity: 4 5. Fall Risk: Dizziness: N Needs help standing or walking: N Fallen in the last 3 months: N Fall risk comments: PT SAYS RIGHT FOOT HAS BEEN DRAGGING AND HIS GAIT HAS CHANGE HE IS WALKING SLOWER 6. Patient on Blood Thinner: None 7. History of Hypertension: Y 8. Opioid Therapy greater than 6 weeks: Y Opiate Contract Signed: 9. Risk Assessment Tool Provided: 0-LOW RISK 10. Functional Assessment Tool: 11. Recreational Drug Use: Never Drug Type: Tobacco Use: Former Smoker Tobacco Type: Amount or Packs/day: How Many Years: Alcohol Use: Yes Frequency: Weekly Quant: X2
--- NOTE | 2020-08-25 15:48 | HPC ---
[facility] [place] [address] PAIN MANAGEMENT CONSULTATION Name: ISABEL MAJOR Room #: REG Gilda Seth.#: [id number] Admission: 08/19/20 Attend Phys: Eliazar Florentino DO Discharge: Date of : 51 Report #: [id number] THIS REPORT FOR: cc: Jolene Gilbert,Eliazar Toney DO ~ DOC #: [id number] cc: ROGER Gibson DO DATE OF SERVICE: 08/19/2020 CHIEF COMPLAINT: Neck pain, bilateral upper extremity pain. HISTORY OF PRESENT ILLNESS: As you know, the patient is a very pleasant 65-year-old male who has been evaluated from a neurosurgery standpoint to undergo cervical surgery, but has been advised to trial conservative treatment initially. He saw Dr. Sanjiv Acuna with research neurosurgery. Findings of his studies and EMG shows a longstanding right C5 and C6 radiculopathies and a left C6 radiculopathy. He is also suffering from bilateral carpal tunnel involving the hands. He was trialed on medication management, started on gabapentin, which he did not receive much in the way of improvement, but did not have any side effects. We escalated dose to 900 mg t.i.d., but has been ill advised by his physician that this is too high a dose of medication. I questioned the patient in regards to side effects and the answer was an emphatic no. The top dose of gabapentin is anywhere between 3600 mg per day up to 4800 mg per day and the patient was only at 2700 mg per day, taking 900 mg 3 times without side effects or significant pain improvement. He returns today in followup visit to discuss options for treatment. We had considered cervical epidural injections in the past. He wants discussed this again today. ALLERGIES: No known drug allergies. CURRENT MEDICATIONS: Testosterone, temazepam, celecoxib, aspirin, amlodipine, hydrocodone, lisinopril, hydrochlorothiazide, metformin, atorvastatin, methotrexate and Humira. SOCIAL HISTORY: The patient denies tobacco, alcohol or IV or illicit drug use. He is unaccompanied today. IMAGING: No new imaging available. PQRS: The patient has known arthritic changes of the cervical spine, lumbar spine, all weightbearing joints, hips, ankles and knees. He is treated for rheumatoid arthritis. He is not a fall risk, has not had fallen in last 3 months. He is not on blood thinners, but is treated for hypertension. He is on chronic opioids, has a low opioid addiction potential based on our assessment [address] [address] PAIN MANAGEMENT CONSULTATION Name: ISABEL MAJOR Room #: REG CL Marcela#: [id number] Admission: 08/19/20 Attend Phys: Eliazar Florentino DO Discharge: Date of : 51 Report #: [id number] tool. Pain impact is 29/70, moderate interference of daily activities secondary to pain. PHYSICAL EXAMINATION: VITAL SIGNS: Blood pressure 145/80, pulse is 66, respiratory rate 16 and unlabored. The patient is 100% on room air. Height 5 feet 8 inches tall, weight 218.4 pounds, BMI calculated at 33.2. GENERAL: Well-developed, well-nourished, well-hydrated 65-year-old male appearing stated age, pain is rated today at anywhere from 4-5/10. HEENT: Normocephalic, atraumatic. Pupils equal, round and responsive. The patient is wearing a mask in compliance with COVID-19 regulations. EXTREMITIES: Show no clubbing, no cyanosis. No appreciable edema. 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 Spurling's test is equivocal. Well-healed surgical scars over the cervical region. Palpatory tenderness is noted over the paraspinal musculature. ASSESSMENT: 1. Chronic cervical radiculopathy. 2. Cervical spondylosis with radiculopathy. 3. Peripheral neuropathy. 4. Carpal tunnel syndrome. 5. Chronic intractable pain. PLAN: 1. The patient returns today in followup visit where he and I have discussed at length the recent change to his gabapentin medication. I have questioned the patient in regards to gabapentin and Lyrica combination whether or not he is experiencing side effects and the answer was an emphatic no. The patient had been advised by his primary care physician to reduce the gabapentin therapy from 900 mg 3 times a day to 600 mg 3 times a day as he was taking too high a dose of medication. I do not agree with this adjustment. The patient was experiencing no side effects and the highest dose of this medication is actually 1800 mg 3 times a day well below where the patient is currently dosing. The fact that he was experiencing noticed no side effects of sleepiness, disorientation, confusion, mental slowing with indicates that we have reached a subtherapeutic range of medication as he was receiving no benefit. The patient and I discussed this at length today. We will make adjustments in medication management, but requested that the patient can contact our clinic specifically in regards to medications for pain control, so that we can make the adjustments appropriate to treat his symptoms. 2. We will stop gabapentin at this point, we will price changer to Lyrica 75 mg dose 1 tab p.o. at bedtime for 7 nights. If no improvement in symptoms, no side effects, then reach to 150 mg p.o. at bedtime. If no improvement in symptoms, no side effects, then increase to 75 mg morning and 150 mg at night for 7 days. If no improvement in symptoms, then increase to 150 mg b.i.d. The patient will [facility] [address] [place] [address] PAIN MANAGEMENT CONSULTATION Name: ISABEL MAJOR Room #: REG CORY Medrano#: [id number] Admission: 08/19/20 Attend Phys: Eliazar Florentino DO Discharge: Date of : 51 Report #: [id number] watch for side effects of sleepiness, disorientation, confusion, mental slowing with the use of the medication. 3. The patient and I did discuss the possibility of undergoing a cervical epidural injection in the past. I do feel this would be of benefit at this point. We wish to determine whether or not injections will be enrolled beneficial. The patient is agreeable with this plan. Answers the questions for the neurosurgery team who also sent the patient to our clinic to undergo this type of procedure. He has been advised the risks and benefits of a cervical epidural injection and wishes to proceed. 4. The patient and I did discuss the possibility of having him referred for his carpal tunnel syndrome to Dr. Morley at [facility]. He is going to consider this option. We will contact the clinic if he does wish to move forward with a referral for carpal tunnel release surgery. 5. The patient has been advised risks and benefits of a cervical epidural injection. These risks include but are not necessarily limited to bleeding, bruising, infection, worsening pain, no relief of pain, also risk of temporary or permanent muscle weakness, temporary or permanent nerve damage, possible paralysis, post-dural puncture headache and . The patient states understood and wished to proceed. PROCEDURE NOTE DESCRIPTION OF PROCEDURE: C7-T1 cervical epidural steroid injection under fluoroscopic guidance. This is the first procedure of the first series that the patient is undergoing. After obtaining written consent, the patient was taken back to the fluoroscopy suite and placed in a prone position with separate pillow under chest and forehead to decrease cervical lordosis. The skin overlying the cervical area was prepped and draped in an aseptic fashion. The C7-T1 vertebral interspace was identified by AP fluoroscopy. The skin and subcutaneous tissue overlying the target site of injection was anesthetized using 3 mL of 1% lidocaine. A 20-gauge 3-1/2 inch Tuohy needle was advanced under fluoroscopic guidance toward the epidural space using a midline approach. The epidural space was identified using a loss of resistance to air technique. After negative aspiration for heme or cerebrospinal fluid, a total of 1 mL of Omnipaque was injected. A cervical epidurogram was confirmed using AP and oblique fluoroscopy. After negative aspiration for heme or cerebrospinal fluid, 5 mL of a solution containing 2 mL 40 mg per mL 80 mg total triamcinolone along with 3 mL of lidocaine 1% was injected in increments. Contrast spread was noted from posterior epidural space. The needle was then retracted approximately senior living and the needle track was flushed with 1 mL of 1% lidocaine. There were no apparent new sensory deficits in the upper extremities present following the procedure. A sterile bandage was placed over the injection site. [address] [address] PAIN MANAGEMENT CONSULTATION Name: ISABEL MAJOR Room #: REG CORY Medrano#: [id number] Admission: 08/19/20 Attend Phys: Eliazar Florentino DO Discharge: Date of : 51 Report #: [id number] The heart rate, pulse oximetry and blood pressure were continuously monitored after the procedure. There were no complications. The patient tolerated the procedure well and was carefully escorted in the recovery room in stable condition. After meeting discharge criteria, the patient was discharged home. Eliazar Florentino DO JEJ/DONNA <ELECTRONICALLY SIGNED> By: Eliazar Florentino DO 08/25/20 1548 [id number] [id number] Eliazar Florentino DO /nt
== END | disposition home or self-care (01) ==
LOC: PAIN 06:51
PROVIDERS: ATTEND Anesthesiology Pain Medicine
DX: M47.22 Other spondylosis with radiculopathy, cervical region (principal); G89.29 Other chronic pain; G62.9 Polyneuropathy, unspecified; I10 Essential (primary) hypertension; M19.90 Unspecified osteoarthritis, unspecified site; Z98.890 Other specified postprocedural states; Z79.899 Other long term (current) drug therapy

== ENCOUNTER → 2020-10-27 | Outpatient (CLI) | payer OTHER ==
[~2020-10-27] VITALS: Ht 172.7 cm; Wt 95.7 kg
[~2020-10-27] MED LIST changes: +CYMBALTA30 MG PO; +CYMBALTA60 MG PO; +LYRICA150 MG PO
[2020-10-27 09:16] VITALS: BP 147/98
--- NOTE | 2020-10-27 09:25 | NUR ---
Pain Clinic Assessment: 1. History of Osteoarthritis: C-SPINE History of Rheumatoid Arthritis: YES MIGRATES THUMB JAW TOE 2. Height: 5 ft. 8 in. 172.7 cm. Weight: 211.0 lb. oz. 95.709 kg. Patient's BMI: 32.1 3. Vital Signs: BP: 147/98 Pulse: 94 Resp: 16 Temp: 02 Sat: 97 ECG Mon: 4. Pain Intensity: 4-5 5. Fall Risk: Dizziness: N Needs help standing or walking: N Fallen in the last 3 months: N Fall risk comments: PT SAYS RIGHT FOOT HAS BEEN DRAGGING AND HIS GAIT HAS CHANGE HE IS WALKING SLOWER 6. Patient on Blood Thinner: None 7. History of Hypertension: Y 8. Opioid Therapy greater than 6 weeks: Y Opiate Contract Signed: 9. Risk Assessment Tool Provided: 0-LOW RISK 10. Functional Assessment Tool: 11. Recreational Drug Use: Never Drug Type: Tobacco Use: Former Smoker Tobacco Type: Amount or Packs/day: How Many Years: Alcohol Use: Yes Frequency: Monthly Quant: 6 BEER
--- NOTE | 2020-10-28 13:43 | HPC ---
[facility] [place] [address] PAIN MANAGEMENT CONSULTATION Name: ISABEL MAJOR Room #: REG [facility] Seth.#: [id number] Admission: 10/27/20 Attend Phys: Awilda Perales Discharge: Date of : 53 Report #: [id number] THIS REPORT FOR: cc: Jolene Gilbert,Jolene Perales,Awilda BAUTISTA ~ cc: Eliazar Gibson DO DATE OF SERVICE: 10/27/2020 CHIEF COMPLAINT: Neck pain, bilateral upper extremity pain. HISTORY OF PRESENT ILLNESS: This is a 65-year-old gentleman who returns to the pain clinic today to discuss tapering his Cymbalta and Lyrica medications. The patient recently underwent a bilateral carpal tunnel release by Dr. Morley and he is hopeful to wean off his medications that he takes for his neuropathy. He states he has some heaviness in his arms, but believes he has less numbness and tingling in his fingers as he did prior to his surgery and would like to attempt in decreasing his medications due to this reasoning. He is hopeful that the carpal tunnel surgery will relieve a significant portion of his hand pain. Today, he states that overusing his arms makes his pain worse. He is wearing braces bilaterally on his wrist today. ALLERGIES: No known drug allergies. CURRENT LIST OF MEDICATIONS: Lyrica 150 mg b.i.d., Flomax, Cymbalta 60 mg b.i.d., testosterone, temazepam, aspirin, hydrocodone p.r.n., folic acid, lisinopril, hydrochlorothiazide, Glucophage, Lipitor, methotrexate and Humira. PQRS: 1. He has a history of osteoarthritis in his cervical and lumbar spine as well as weightbearing joints, knees, ankles, and hips. He is also treated for rheumatoid arthritis. 2. Height is 5 feet 8 inches, weight is 211, BMI is 32. 3. Vital signs 147/98, pulse is 94, respirations 16, oxygen sat is 97%. 4. Pain score is 4-5. 5. Denies dizziness, does not need help walking or standing, has not fallen in the last 3 months. 6. The patient is not on any blood thinners, but does take medicine for hypertension. 7. Opioid therapy is none. 8. Risk assessment: Low. 9. Functional assessment: 29 out a 70. 10. Recreational drug use: Medical marijuana card. He is not a smoker and occasionally drinks alcohol. PHYSICAL EXAMINATION: [facility] [address] [place] [address] PAIN MANAGEMENT CONSULTATION Name: ISABEL MAJOR Room #: REG [facility] Marcela#: [id number] Admission: 10/27/20 Attend Phys: Awilda Perales Discharge: Date of : 53 Report #: [id number] GENERAL: This is a well-developed, well-nourished, well-hydrated 65-year-old gentleman who appears his stated age, rating his pain score today at 4-5 and he is a good historian. HEENT: Normocephalic, atraumatic. Pupils equal, round and reactive. He is wearing a mask. EXTREMITIES: No clubbing, no cyanosis. No appreciable edema. He is wearing compression braces on both wrists bilaterally with well-healed approximated scars from recent carpal tunnel release. MUSCULOSKELETAL: Upper extremity strength appears symmetrical. He has well-healed surgical scars in his cervical area with tenderness noted over his musculature in his cervical paraspinal musculature. ASSESSMENT: 1. Cervical radiculopathy, chronic in nature. 2. Cervical spondylosis with radiculopathy. 3. Peripheral neuropathy. 4. Carpal tunnel syndrome. 5. Chronic intractable pain. PLAN: 1. We discussed treatment options with the patient today. We will continue the patient on his Lyrica and Cymbalta, but slowly taper these medications. He was given a taper schedule to start with Lyrica taking 150 mg tonight and then in the morning, start 75 in the morning and 150 at night for 3 days, then 75 in the morning and 75 at night for 3 days, then no medication in the morning and 75 at night for 3 days, then off. 2. After a week of being off his Lyrica, he will start his Cymbalta taper starting with 30 mg in the morning and 60 at night for 1 week, then 30 in the morning and 30 at night for 1 week, then none in the morning and 30 at night for 1 week and then off this medication. The patient is instructed to call if he has difficulty tapering these medications or symptoms arise to stay at that dose slightly longer. 3. Scripts sent electronically for Lyrica 75 mg tablets #30 and Cymbalta 30 mg tablets #120. That should be enough medication to last through this taper schedule. 4. We did discuss that he may notice continued neuropathic issues in his arms, which may be related to his cervical spine and in the future if he does need an epidural, Dr. Eliazar Florentino would be willing to provide that for him and we may need to continue some of his neuropathic medications depending on his symptoms. The patient verbalizes understanding. 5. The patient will return only on as-needed basis and we wish him the best of luck. Time spent with the patient in consultation, reviewing recent studies and clinical notes and physician reports, physical examination and correlation of findings, medical documentation to determine possible treatment options is 17 [facility] [address] [place] [address] PAIN MANAGEMENT CONSULTATION Name: ISABEL MAJOR Room #: REG CLI Seth.#: [id number] Admission: 10/27/20 Attend Phys: Awilda Perales Discharge: Date of : 53 Report #: [id number] minutes. Time spent in preparation for appointment reviewing prescription monitoring reports, reviewing previous records, treatment options and current medications is 5 minutes. Time spent preparing and sending electronic prescriptions with collaborating physician, Dr. Eliazar Florentino, documentation of visit and plan of treatment is 5 minutes. Total time spent 27 minutes. <ELECTRONICALLY SIGNED> By: Awilda Perales 10/28/20 1343 0915 2213 Awilda Perales /nt
== END ==
LOC: PAIN 07:00
PROVIDERS: ATTEND Clinical Nurse Specialist Adult Health
DX: M47.22 Other spondylosis with radiculopathy, cervical region (principal); G62.9 Polyneuropathy, unspecified; G56.00 Carpal tunnel syndrome, unspecified upper limb; G89.4 Chronic pain syndrome; Z79.891 Long term (current) use of opiate analgesic; Z79.899 Other long term (current) drug therapy

== ENCOUNTER → 2020-12-23 | Outpatient (CLI) | payer OTHER ==
[~2020-12-23] VITALS: Ht 172.7 cm; Wt 96.8 kg
[~2020-12-23] MED LIST changes: +LISINOPRIL20 MG PO; +ROSUVASTATIN CA20 MG PO; +ZETIA10 MG PO
[2020-12-23 10:59] VITALS: BP 133/79
--- NOTE | 2020-12-23 11:12 | NUR ---
Pain Clinic Assessment: 1. History of Osteoarthritis: C-SPINE History of Rheumatoid Arthritis: YES MIGRATES THUMB JAW TOE 2. Height: 5 ft. 8 in. 172.7 cm. Weight: 213.4 lb. oz. 96.798 kg. Patient's BMI: 32.5 3. Vital Signs: BP: 133/79 Pulse: 77 Resp: 16 Temp: 02 Sat: 99 ECG Mon: 4. Pain Intensity: 6 5. Fall Risk: Dizziness: N Needs help standing or walking: N Fallen in the last 3 months: N Fall risk comments: PT SAYS RIGHT FOOT HAS BEEN DRAGGING AND HIS GAIT HAS CHANGE HE IS WALKING SLOWER 6. Patient on Blood Thinner: None 7. History of Hypertension: Y 8. Opioid Therapy greater than 6 weeks: Y Opiate Contract Signed: 9. Risk Assessment Tool Provided: 0-LOW RISK 10. Functional Assessment Tool: 11. Recreational Drug Use: Never Drug Type: Tobacco Use: Former Smoker Tobacco Type: Amount or Packs/day: How Many Years: Alcohol Use: Yes Frequency: Monthly Quant: 2
--- NOTE | 2020-12-29 09:20 | HPC ---
[address] [place] [address] PAIN MANAGEMENT CONSULTATION Name: ISABEL MAJOR Room #: REG [facility] Seth.#: [id number] Admission: 12/23/20 Attend Phys: Eliazar Florentino DO Discharge: Date of : 53 Report #: [id number] THIS REPORT FOR: cc: Jolene Gilbert,Eliazar Toney DO ~ cc: William Umana MD, Jolene Gilbert, ROGER DATE OF SERVICE: 12/23/2020 REFERRING PHYSICIAN: Dr. William Umana. CHIEF COMPLAINT: Low back pain, left lower extremity pain with paresthesias, chronic neck pain, bilateral upper extremity pain with paresthesias. HISTORY OF PRESENT ILLNESS: As you know, the patient is a very pleasant 65-year-old male returning in followup visit to undergo lumbar epidural injection under fluoroscopic guidance. The patient reports pain begins in low back, radiates down the left leg, specifically. He has intermittent right lower extremity symptoms that presents spontaneously and resolves spontaneously. He continues to be evaluated for his cervical radicular symptoms and has an appointment with Dr. Acuna coming up in a week or two to discuss that further. He returns today to undergo lumbar epidural injection under fluoroscopic guidance in hopes of improving pain. He is placing current pain score 6/10. He states he is losing balance and he has buckling of the left knee. He has to take one step at a time, which is unusual for him. He returns hoping a lumbar epidural injection would benefit from a functional standpoint, but does have appointment with Dr. Acuna on the to discuss surgical options. ALLERGIES: No known drug allergies. CURRENT MEDICATIONS: See chart. SOCIAL HISTORY: The patient denies tobacco, alcohol or IV or illicit drug use. He is unaccompanied today. IMAGING: No new imaging available. PQRS: The patient has known arthritic changes of the cervical spine, lumbar spine, all weightbearing joints, hips, ankles and knees. He is treated for rheumatoid arthritis. He is a fall risk, but has not had a fall in the last 3 months. He is having some gait changes due to right foot drop and buckling of his left knee. He is not on blood thinners, but is treated for hypertension. He is on chronic opioids, has a low opioid addiction potential based on assessment tool. Pain impact is 29/70, moderate interference of daily activities secondary to pain. [address] [address] PAIN MANAGEMENT CONSULTATION Name: ISABEL MAJOR Room #: REG CLI [facility]#: [id number] Admission: 12/23/20 Attend Phys: Eliazar Florentino DO Discharge: Date of : 51 Report #: [id number] PHYSICAL EXAMINATION: VITAL SIGNS: Blood pressure 133/79, pulse 77, respiratory rate 16 and unlabored. The patient 99% on room air. Height 5 feet 8 inches tall, weight 213.4 pounds, BMI calculated 32.5. GENERAL: Well-developed, well-nourished, well-hydrated 65-year-old male appearing stated age, pain is rated around 6/10. HEENT: Normocephalic, atraumatic. Pupils equal, round and responsive. He is wearing a mask in compliance with COVID-19 regulations. EXTREMITIES: Show no clubbing, no cyanosis, no edema. MUSCULOSKELETAL: Lower extremity strength appears symmetrical, though there is giveaway strength noted with hip flexion, knee extension on the left when compared to the right. Muscle bulk and tone appear symmetrical, but there is some deconditioning. Gait is antalgic. Stance is normal. Seated straight leg raising negative. Supine straight leg raising is positive on the left. ASSESSMENT: 1. Symptomatic lumbar radiculopathy. 2. Displacement of lumbar intervertebral disk with radiculopathy. 3. Spinal stenosis of lumbar spine. 4. Facet arthropathy of lumbar spine. 5. Chronic intractable pain. PLAN: 1. The patient returns today in followup visit to undergo lumbar epidural injection under fluoroscopic guidance to address ongoing low back and left lower extremity pain along with right lower extremity intermittent pain. He has been advised risks and benefits of this procedure. These risks include but are not necessarily limited to bleeding, bruising, infection, worsening pain, no relief of pain, also risk of temporary or permanent muscle weakness, temporary or permanent nerve damage, possible paralysis, and . The patient states understood and wished to proceed. 2. No medication changes made at today's visit. The patient will continue current medical therapy as prior prescribed. 3. We plan to see the patient back in followup visit for next in the series of lumbar epidural injections on an as needed basis. We recommend the patient follow up with his neurosurgeon to discuss surgical options with them further. DESCRIPTION OF PROCEDURE: L5-S1 left parasagittal epidural steroid injection under fluoroscopic guidance. After obtaining written consent, the patient was taken back to fluoroscopy suite, placed in prone position with pillow under abdomen to decrease lumbar lordosis. Skin overlying lumbosacral area prepped and draped in aseptic fashion. L5-S1 interspace was identified by AP fluoroscopy. Skin and subcutaneous tissue overlying target site injection anesthetized with 3 mL of 1% lidocaine. [address] [address] PAIN MANAGEMENT CONSULTATION Name: ISABEL MAJOR Room #: REG CLI Marcela#: [id number] Admission: 12/23/20 Attend Phys: Eliazar Florentino DO Discharge: Date of : 53 Report #: [id number] A 20-gauge, 3-1/2-inch Tuohy needle advanced under fluoroscopic guidance towards the epidural space using a left parasagittal approach. Epidural space identified using loss of resistance to air technique. After negative aspiration for heme or cerebrospinal fluid, 1 mL of Omnipaque injected. Lumbar epidurogram was confirmed using both AP and lateral fluoroscopy. After negative aspiration for heme or cerebrospinal fluid, 5 mL of a solution containing 2 mL 40 mg per mL 80 mg total triamcinolone along with 3 mL of lidocaine 1% injected slowly. Needle retracted longterm flushed with 1 mL of 1% lidocaine and removed. Sterile bandage placed over injection site. No new motor deficits present in lower extremity following procedure. The patient tolerated the procedure well, carefully escorted to recovery room in stable condition. No apparent complications. After meeting discharge criteria, the patient discharged home. <ELECTRONICALLY SIGNED> By: Eliazar Florentino DO 12/29/2020 0702 0750 Eliazar Florentino DO /nt
== END | disposition home or self-care (01) ==
LOC: PAIN 07:05
PROVIDERS: ATTEND Anesthesiology Pain Medicine
DX: M51.16 Intervertebral disc disorders with radiculopathy, lumbar region (principal); M47.26 Other spondylosis with radiculopathy, lumbar region; M48.061 Spinal stenosis, lumbar region without neurogenic claudication; G89.29 Other chronic pain; I10 Essential (primary) hypertension; M19.90 Unspecified osteoarthritis, unspecified site; M06.9 Rheumatoid arthritis, unspecified; Z98.890 Other specified postprocedural states; Z79.899 Other long term (current) drug therapy; Z79.891 Long term (current) use of opiate analgesic

== ENCOUNTER → 2021-06-02 | Outpatient (CLI) | payer OTHER ==
[~2021-06-02] VITALS: Ht 172.7 cm; Wt 96.4 kg
[~2021-06-02] MED LIST changes: +NEURONTIN 300M300 M2 PO
--- NOTE | ~2021-06-02 | HPC ---
[facility] [address] PAIN MANAGEMENT CONSULTATION Name: ISABEL MAJOR Room #: REG CORY Marcela#: [id number] Admission: 06/02/21 Attend Phys: Eliazar Florentino DO Discharge: Date of : 51 Report #: [id number] THIS REPORT FOR: cc: Melodie Oliva Shanna R. DO Johnson, James E. DO ~ cc: William Umana MD DATE OF SERVICE: 06/02/2021 REFERRING PHYSICIAN: William Umana MD CHIEF COMPLAINT: Low back pain, left lower extremity pain with paresthesias. HISTORY OF PRESENT ILLNESS: As you know, the patient is a very pleasant 66-year-old male, returning in followup visit with recurrent lumbar radiculopathy. He is now complaining of not only left lower extremity pain, but also right foot pain. He states his gait has changed over the past couple of weeks. He has had no inciting injury or trauma. The patient, as you are aware, suffers from severe central canal stenosis of lumbar spine at multiple levels. He underwent recently a surgery to address cervical spinal stenosis that was classified as critical. He has completed the surgery and recovered from that issue, but is now experiencing lower extremity pain that is bilateral in nature. He has been followed up by Neurosurgery who advised the patient trial conservative treatment. If this is ineffective, then move forward with surgical options. The patient has done very well with previous epidural injections and is hopeful to see improvement with next in the series. The patient recently saw Dr. Luigi Brunson who has taken over his case from Dr. Acuna, recommending epidural injections to address this issue. The patient has had no changes in medication management that would preclude the patient from undergoing treatment. He is continuing to participate in home exercise program. He has had formalized physical therapy and he continues to do those at home. He is experiencing lower extremity pain, paresthesias, numbness and tingling as well as pain exacerbated with coughing, sneezing and standing. He has had more than 6 weeks of medical management and physical therapy as well as exercise therapy. He has had many different epidural injections in the past, only 2 lumbar epidural injections, both of which provided greater than 70% improvement in overall pain. He returns today to begin the process of authorization for the next in the series. ALLERGIES: No known drug allergies. CURRENT MEDICATIONS: See chart. SOCIAL HISTORY: The patient denies tobacco, alcohol or IV or illicit drug use. He is accompanied by his , present in room today. [address] [address] PAIN MANAGEMENT CONSULTATION Name: ISABEL MAJOR [facility]#: [id number] Admission: 06/02/21 Attend Phys: Eliazar Florentino DO Discharge: Date of : 51 Report #: [id number] IMAGING: No new imaging is available. PQRS: The patient has known arthritic changes of cervical spine, lumbar spine, all weightbearing joints, hips, ankles and knees. He is treated for rheumatoid arthritis. He is a fall risk, but has not had a fall in last 3 months. He is noticing a gait change that has progressed over the past 3 weeks. He is not on blood thinners, but is treated for hypertension. He is on chronic opioids, has a low opioid addiction potential based on assessment tool. Pain impact is 30/70, moderate interference of daily activities secondary to pain. PHYSICAL EXAMINATION: VITAL SIGNS: Blood pressure 136/65, pulse 60, respiratory rate 18 and unlabored. The patient 98% on room air. Height 5 feet 8 inches tall, weight 212.6 pounds, BMI calculated 32.3. GENERAL: Well-developed, well-nourished, well-hydrated 66-year-old male appearing stated age, pain is rated today 7/10. HEENT: Normocephalic, atraumatic. Pupils equal, round. He is wearing a mask in compliance with COVID-19 regulations. EXTREMITIES: Show no clubbing, no cyanosis, no edema. MUSCULOSKELETAL: Lower extremity strength equal and symmetrical 5/5, intact to light touch from L1 through S2 dermatomes. Seated straight leg raising positive. Supine straight leg raising positive bilaterally, left greater than right. Gait is antalgic, appears to be favoring right lower extremity today over left. Deep tendon reflexes are symmetrical, but diminished. ASSESSMENT: 1. Symptomatic lumbar radiculopathy. 2. Severe spinal stenosis of lumbar spine. 3. Displacement of lumbar intervertebral disk with radiculopathy. 4. Facet arthropathy of lumbar spine. 5. Chronic intractable pain. PLAN: 1. The patient returns today in followup visit to begin the authorization process to undergo next in the series of lumbar epidural injections. The patient continues to participate in home exercise program. He takes oral medications for pain control. He has had greater than 6 weeks of a traditional conservative treatment leading up to this. He has changed his lifestyle and activities. To address this issue, he has also begun myofascial release procedures to assist, all of which have provided only transient improvement. He wants to undergo the next in the series of epidural injections. He understands authorization will be necessary. We will begin that authorization process immediately. 2. We have given the patient an increase in gabapentin. He will start with escalating doses every 3 nights. He was given a titration on how to do so. A prescription of gabapentin was sent to his local pharmacy to be able to address [facility] [address] [place] [address] PAIN MANAGEMENT CONSULTATION Name: PEDRITOISABEL LEZAMA Room #: REG CLI Seth.#: [id number] Admission: 06/02/21 Attend Phys: Eliazar Florentino DO Discharge: Date of : 51 Report #: [id number] this increased therapy. A prescription of #270 gabapentin 300 was sent to his local pharmacy. 3. We plan to see the patient back in followup visit once we have achieved authorization to undergo the requested lumbar epidural injection. I am hopeful this authorization can occur quickly as the patient is having difficulty with going about daily activities due to pain concerns. We will begin that process immediately. I am hopeful we can expedite. 4. We will see the patient back in followup visit. We will keep you apprised of his response to treatment. Thank you again for the re-referral of the patient back to our clinic. By: [id number] Eliazar Florentino DO /nt
[2021-06-02 11:11] VITALS: BP 136/65
--- NOTE | 2021-06-02 11:25 | NUR ---
Pain Clinic Assessment: 1. History of Osteoarthritis: C-SPINE History of Rheumatoid Arthritis: YES MIGRATES THUMB JAW TOE 2. Height: 5 ft. 8 in. 172.7 cm. Weight: 212.6 lb. oz. 96.435 kg. Patient's BMI: 32.3 3. Vital Signs: BP: 136/65 Pulse: 60 Resp: 18 Temp: 02 Sat: 98 ECG Mon: 4. Pain Intensity: 7 5. Fall Risk: Dizziness: N Needs help standing or walking: N Fallen in the last 3 months: N Fall risk comments: PT SAYS RIGHT FOOT HAS BEEN DRAGGING AND HIS GAIT HAS CHANGE HE IS WALKING SLOWER 6. Patient on Blood Thinner: None 7. History of Hypertension: Y 8. Opioid Therapy greater than 6 weeks: Y Opiate Contract Signed: 9. Risk Assessment Tool Provided: 0-LOW RISK 10. Functional Assessment Tool: 11. Recreational Drug Use: Never Drug Type: Tobacco Use: Former Smoker Tobacco Type: Amount or Packs/day: How Many Years: Alcohol Use: No Frequency: Quant:
== END ==
LOC: PAIN 09:44
PROVIDERS: ATTEND Anesthesiology Pain Medicine
DX: M47.26 Other spondylosis with radiculopathy, lumbar region (principal); M48.061 Spinal stenosis, lumbar region without neurogenic claudication; Z79.899 Other long term (current) drug therapy; G89.29 Other chronic pain